=== PATIENT | female | born 1940 | race Caucasian/White ===

== ENCOUNTER 2016-11-11 17:57 | Observation (INO) | payer BC, OTHER ==
[~2016-11-11] VITALS: Ht 165.1 cm; Wt 72.0 kg
[~2016-11-11 17:57] MED LIST: AMOX TR-K CLV1 EAC4 PO; ASPIRIN325 MG PO; BENTYL20 MG PO; BENTYL20 MG/2 ML IM; BLOOD PRESSURE MED; CALCIUM 600 +1 EACH PO; FLAGYL500 MG PO; FLUTICASONE PRO16 GM BOTH NARES; LIPO-FLAVONO1 TABLET PO; LOTREL 5/101 CAPSULE PO; MULTIPLE VITAM1 EAC1 PO; PROBIOTIC1 EAC1 PO; RED YEAST RICE600 MG PO; VITAMIN C W/R1000 M1 PO; ZOFRAN ODT8 MG PO
[2016-11-11 18:27] LABS: HEMATOCRIT 42.1 % (36.0-46.0); MCH 27.6 PG (29.0-34.0); MCHC 33.5 G/DL (30.0-36.0); MCV 82.4 FL (83-99); MEAN PLAT.VOLUME 9.2 uM^3 (9.5-12.4); PLATELET COUNT 261 K/uL (156-360); RBC DIS.WIDTH-CV 14.2 % (11.8-14.6); RBC DIS.WIDTH-SD 41.9 % (39-53); RED BLOOD COUNT 5.11 M/uL (3.80-5.20); WHITE BLOOD COUNT 7.9 K/uL (4.1-10.2)
[2016-11-11 18:41] LABS: CHLORIDE 107 mEq/L (99-109); SODIUM 141 mEq/L (136-147)
[2016-11-11 18:43] LABS: GLUCOSE 140 mg/dL (70-99)
[2016-11-11 18:44] LABS: ANION GAP 10 MEQ/L (2-14)
[2016-11-11 18:46] LABS: GFR ESTIMATE (CALCULATED) > 59 mL/min/
[2016-11-11 18:47] LABS: UREA NITROGEN (BUN) 18 mg/dL (9-23)
[2016-11-11 18:48] LABS: TROP-I INTERPRETATION NEGATIVE; TROPONIN-I < 0.01 ng/mL (0.0-0.30)
[2016-11-11] MEDS ORDERED: CENTRUM SILVER1 EAC3 PO (20:41)
[2016-11-11] MEDS ORDERED: CALCIUM 600 +1 EAC1 PO (23:32)
[2016-11-12 06:16] LABS: TROP-I INTERPRETATION NEGATIVE; TROPONIN-I < 0.01 ng/mL (0.0-0.30)
[2016-11-12 06:32] LABS: HDL CHOLESTEROL 59 MG/DL (Desirable>=50); LDL CHOLESTEROL 112 mg/dL (Desirable<100); NON-HDL CHOLESTEROL 144 mg/dL (Desirable<160); TOTAL CHOLESTEROL 203 mg/dL (Desirable<200); TRIGLYCERIDES 158 MG/DL (Normal: <150)
[2016-11-12 12:43] LABS: TROP-I INTERPRETATION NEGATIVE; TROPONIN-I < 0.01 ng/mL (0.0-0.30)
[2016-11-12 14:51] VITALS: BP 114/55
[2016-11-13 07:31] LABS: Estimated Average Glucose 128 mg/dL (70-123); HEMOGLOBIN A1c (GLYCOHEMOGLOB) 6.1 % HGB (Below 5.7)
== END 2016-11-12 14:26 | disposition home or self-care (01) ==
LOC: EME 17:57 → EDOF 11-12 00:16
PROVIDERS: Hospitalist
DX: R00.2 Palpitations (principal); R94.31 Abnormal electrocardiogram [ECG] [EKG]; R27.0 Ataxia, unspecified; R55 Syncope and collapse; I10 Essential (primary) hypertension; Z86.73 Personal history of transient ischemic attack (TIA), and cerebral infarction without residual deficits; E78.5 Hyperlipidemia, unspecified; Z88.1 Allergy status to other antibiotic agents; Z88.5 Allergy status to narcotic agent; Z91.040 Latex allergy status; Z91.09 Other allergy status, other than to drugs and biological substances; Z88.8 Allergy status to other drugs, medicaments and biological substances; Z91.041 Radiographic dye allergy status
CPT/HCPCS: 70450; 70551; 71020; 80048; 80061; 83036; 84484; 85027; 93005; 93880; 99281; 99285; G0378; J1644; J2060